=== PATIENT | female | born 1950 | race African-American/Black ===

== ENCOUNTER 2017-11-18 19:54 | Observation (INO) | payer MEDICARE, MEDICAID ==
[~2017-11-18] VITALS: Ht 167.6 cm; Wt 70.5 kg
[~2017-11-18 19:54] MED LIST: AMLO5TAB4 PO; ATOR20TA65 PO; CARB200T PO; CARV12.545 PO; CLON0.5T4 PO; CODE473S2 PO; DIGO125T82 PO; FURO20TA4 PO; GABA-529 PO; GLIP5TAB12 PO; GLYB5TAB7 PO; HYDR-4009 PO; IBUP-2028 PO; LISI-604 PO; METF500T4 PO; MONT10TA24 PO; NATE60TA PO; NORT25CA PO; POTA20TA82 PO; RANI150C12 PO; THEO80SO4 PO; TOPI25TA48 PO; TRAM50TA3 PO
[2017-11-18] MEDS ORDERED: LEVETIRACETAM 500MG PREMIX 100 ML IV ONE (21:15)
[2017-11-18 23:06] LABS: BASOPHILS % 1.3 % (0.0-2.0); EOSINOPHILS % 2.9 % (0.0-5.0); HEMATOCRIT. 33.9 % (36.0-48.0); HEMOGLOBIN. 11.5 g/dL (12.0-16.0); LYMPHOCYTES % 51.8 % (20.0-50.0); MEAN CORPUSCULAR HEMOGLOBIN 31.6 pg (28.0-32.0); MEAN CORPUSCULAR VOLUME 92.9 fL (81.0-99.0); MEAN PLATELET VOLUME 7.8 fl (7.4-10.4); MONOCYTES % 7.7 % (2.0-8.0); NEUTROPHILS % 36.3 % (40.0-76.0); PLATELET 290 x1000/uL (130-400); RED BLOOD CELL COUNT 3.65 mill/uL (4.2-5.4); RED CELL DISTRIBUTION WIDTH 13.3 % (11.6-14.6)
[2017-11-18 23:13] LABS: CHLORIDE 107 mEq/L (98-107)
[2017-11-18 23:17] LABS: PARTIAL THROMBOPLASTIN TIME 25.7 sec (23.4-31.0); PROTHROMBIN TIME 10.3 sec (9.4-11.6)
[2017-11-18 23:23] LABS: VALPROIC ACID < 3.0 ug/mL (50-100)
[2017-11-18 23:38] LABS: DIGOXIN 0.2 ng/mL (0.9-2.0)
[2017-11-18 23:52] LABS: CARBAMAZEPINE < 0.5 ug/mL (4-12); PHENOBARBITAL < 2.1 ug/mL (15.0-40.0)
[2017-11-19 00:43] LABS: CREATINE KINASE 211 IU/L (26-192)
[2017-11-19 00:44] LABS: CREATINE KINASE MB FRACTION 1.1 ng/mL (0.5-3.6)
[2017-11-19 00:53] LABS: THEOPHYLLINE < 2.0 ug/mL (10-20)
[2017-11-19 09:30] VITALS: BP 149/71
[2017-11-19 10:43] VITALS: BP 149/71
[2017-11-19] MEDS ORDERED: IPRATROPIUM/ALBUTEROL 0.5-3(2.5)MG/3ML NEB INH PRN (11:15)
[2017-11-19] MEDS ORDERED: ONDANSETRON HCL 4MG/2ML VIAL IV PRN (11:15)
[2017-11-19 12:00] VITALS: BP 114/72
[2017-11-19] MEDS ORDERED: DEXTROSE 50% WATER 50ML SYRINGE IV PRN (15:15)
[2017-11-19] MEDS: GABAPENTIN 100MG CAPSULE PO SCH ×2 (15:36→21:31)
[2017-11-19 16:00] VITALS: BP 155/83
[2017-11-19] MEDS ORDERED: LEVETIRACETAM 500MG PREMIX 100 ML IV SCH (16:00)
[2017-11-19] MEDS: NICOTINE 21MG PATCH TD SCH (16:30)
[2017-11-19 17:00] LABS: CHLORIDE 109 mEq/L (98-107)
[2017-11-19] MEDS: CARBAMAZEPINE 200MG TABLET PO SCH ×2 (17:00→21:31)
[2017-11-19] MEDS ORDERED: GLYBURIDE 5MG TABLET PO SCH (17:00)
[2017-11-19] MEDS: CARVEDILOL 12.5MG TABLET PO SCH (17:00)
[2017-11-19] MEDS: MONTELUKAST SODIUM 10MG TABLET PO SCH (17:02)
[2017-11-19] MEDS: METHYLPREDNISOLONE SOD SUCC 40 MG/ML VIAL IV SCH (17:02)
[2017-11-19] MEDS: BLOOD SUGAR DIAGNOSTIC STRIP TEST SCH ×2 (17:03→21:20)
[2017-11-19 17:11] LABS: CLARITY URINE CLEAR (CLEAR); COLOR URINE YELLOW (YELLOW); KETONES URINE NEGATIVE (NEGATIVE); LEUKOCYTE ESTERASE URINE 1+ (NEGATIVE); NITRITE URINE NEGATIVE (NEGATIVE); OCCULT BLOOD URINE NEGATIVE (NEGATIVE); PROTEIN URINE NEGATIVE (NEGATIVE); SPECIFIC GRAVITY URINE 1.011 (1.005-1.030)
[2017-11-19 17:11] LABS: CREATINE KINASE 160 IU/L (26-192)
[2017-11-19 17:13] LABS: CREATINE KINASE MB FRACTION 1.5 ng/mL (0.5-3.6)
[2017-11-19 17:52] LABS: *AMPHETAMINES SCREEN URINE NEGATIVE (NEGATIVE); *BARBITURATES SCREEN URINE NEGATIVE (NEGATIVE); *BENZODIAZEPINES SCREEN URINE NEGATIVE (NEGATIVE); *COCAINE SCREEN URINE NEGATIVE (NEGATIVE)
[2017-11-19 17:53] LABS: CANNABINOID URINE SCREEN PRESUMTIVE POSITIVE (NEGATIVE); METHADONE URINE SCREEN NEGATIVE (NEGATIVE); OPIATES URINE SCREEN NEGATIVE (NEGATIVE); PHENCYCLIDINE URINE SCREEN NEGATIVE (NEGATIVE)
[2017-11-19] MEDS: METFORMIN HCL 500MG TABLET PO SCH (18:10)
[2017-11-19] MEDS ORDERED: LORAZEPAM 2MG/ML CPJ IV PRN (19:45)
[2017-11-19 20:00] VITALS: BP 131/57
[2017-11-19] MEDS ORDERED: ATORVASTATIN CALCIUM 20MG TABLET PO SCH (21:00)
[2017-11-19] MEDS ORDERED: CLONAZEPAM 0.5MG TABLET PO SCH (21:00)
[2017-11-19] MEDS: INSULIN LISPRO 100 UNITS/ML SUBCUT SCH (21:30)
[2017-11-19] MEDS: LAMOTRIGINE 25MG TABLET PO SCH (21:31)
[2017-11-19] MEDS: AMLODIPINE 5MG TABLET PO SCH (21:31)
[2017-11-20] VITALS: BP 143/56
[2017-11-20 00:36] LABS: CREATINE KINASE 188 IU/L (26-192)
[2017-11-20 00:38] LABS: CREATINE KINASE MB FRACTION 1.1 ng/mL (0.5-3.6)
[2017-11-20 04:00] VITALS: BP 127/59
[2017-11-20] MEDS: BLOOD SUGAR DIAGNOSTIC STRIP TEST SCH ×3 (07:40→17:40)
[2017-11-20 08:00] VITALS: BP 139/58
[2017-11-20] MEDS: INSULIN LISPRO 100 UNITS/ML SUBCUT SCH ×3 (08:10→18:10)
[2017-11-20] MEDS ORDERED: FUROSEMIDE 20MG TABLET PO SCH (09:00)
[2017-11-20] MEDS ORDERED: TOPIRAMATE 25MG TABLET PO SCH (09:00)
[2017-11-20] MEDS ORDERED: DIGOXIN 125MCG TABLET PO SCH (09:00)
[2017-11-20] MEDS ORDERED: NORTRIPTYLINE HCL 25MG CAPSULE PO SCH (09:00)
[2017-11-20] MEDS ORDERED: GLIPIZIDE 5MG TABLET PO SCH (09:00)
[2017-11-20] MEDS: GABAPENTIN 100MG CAPSULE PO SCH ×2 (09:00→15:00)
[2017-11-20] MEDS: NICOTINE 21MG PATCH TD SCH (09:00)
[2017-11-20] MEDS ORDERED: TRAMADOL 50MG TABLET PO SCH (09:00)
[2017-11-20] MEDS ORDERED: NATEGLINIDE 60MG TABLET PO SCH (09:00)
[2017-11-20] MEDS: LAMOTRIGINE 25MG TABLET PO SCH ×2 (09:00→16:36)
[2017-11-20] MEDS ORDERED: LISINOPRIL 20MG TABLET PO SCH (09:00)
[2017-11-20] MEDS: AMLODIPINE 5MG TABLET PO SCH (10:02)
[2017-11-20] MEDS: CARVEDILOL 12.5MG TABLET PO SCH ×2 (10:05→16:37)
[2017-11-20] MEDS: CARBAMAZEPINE 200MG TABLET PO SCH ×2 (10:05→16:36)
[2017-11-20] MEDS: METHYLPREDNISOLONE SOD SUCC 40 MG/ML VIAL IV SCH ×2 (10:05→16:36)
[2017-11-20] MEDS: TOPIRAMATE 25MG TABLET PO SCH ×2 (10:06→16:37)
[2017-11-20 12:00] VITALS: BP 158/63
[2017-11-20] MEDS: METFORMIN HCL 500MG TABLET PO SCH ×3 (13:10→18:10)
[2017-11-20 16:00] VITALS: BP 122/74
[2017-11-20] MEDS: MONTELUKAST SODIUM 10MG TABLET PO SCH (16:37)
[2017-11-20 18:32] VITALS: BP 122/74
== END 2017-11-20 19:15 | disposition home or self-care (01) ==
LOC: ER 20:02 → INTOOBSV 23:02 → 7WST 23:02 → EDBEDREQ 23:06 → EDBEDREQTM 23:06 → ENRESERV 11-19 07:40
PROVIDERS: ADMIT Internal Medicine; ATTEND Internal Medicine
DX: G40.909 Epilepsy, unspecified, not intractable, without status epilepticus (principal); I50.9 Heart failure, unspecified; I11.0 Hypertensive heart disease with heart failure; E11.9 Type 2 diabetes mellitus without complications; F17.210 Nicotine dependence, cigarettes, uncomplicated; J44.9 Chronic obstructive pulmonary disease, unspecified; Z90.710 Acquired absence of both cervix and uterus; H05.20 Unspecified exophthalmos; D64.9 Anemia, unspecified; E87.5 Hyperkalemia; I65.29 Occlusion and stenosis of unspecified carotid artery; R62.7 Adult failure to thrive; Z79.84 Long term (current) use of oral hypoglycemic drugs; Z79.899 Other long term (current) drug therapy
CPT/HCPCS: 36415; 70450; 70551; 71045; 80048; 80156; 80162; 80165; 80184; 80185; 80198; 80305; 81003; 82550; 82553; 82962; 83880; 84484; 85025; 85610; 85730; 93005; 93306; 94640; 96365; 96372; 96375; 96376; 97166; 99285; G0378; G8987; G8988; G8989; J1815; J1953; J2920; J7050; J7620

== ENCOUNTER 2019-09-26 05:35 | Emergency (ER) | payer MEDICARE, MEDICAID ==
[~2019-09-26] VITALS: Ht 170.2 cm; Wt 73.0 kg
[~2019-09-26 05:35] MED LIST changes: -ATOR20TA65 PO; -CARV12.545 PO; -CODE473S2 PO; -DIGO125T82 PO; -GLIP5TAB12 PO; -HYDR-4009 PO; -IBUP-2028 PO; +METF-414 PO; -METF500T4 PO; -MONT10TA24 PO; +MONT10TA26 PO; -NATE60TA PO; -NORT25CA PO; -POTA20TA82 PO; -RANI150C12 PO; -THEO80SO4 PO; -TOPI25TA48 PO; -TRAM50TA3 PO
[2019-09-26] MEDS ORDERED: KETOROLAC 30MG/ML VIAL IV STA (06:29)
[2019-09-26] MEDS ORDERED: SODIUM CHLORIDE 0.9% 1,000 ML IV ONE (06:29)
[2019-09-26] MEDS ORDERED: METOCLOPRAMIDE HCL 10MG/2ML VIAL IV ONE (06:30)
[2019-09-26 06:39] LABS: BASOPHILS % 0.9 % (0.0-2.0); HEMATOCRIT. 36.4 % (36.0-48.0); HEMOGLOBIN. 12.1 g/dL (12.0-16.0); LYMPHOCYTES % 48.3 % (20.0-50.0); MEAN CORPUSCULAR HEMOGLOBIN 31.2 pg (28.0-32.0); MEAN CORPUSCULAR VOLUME 93.6 fL (81.0-99.0); MEAN PLATELET VOLUME 7.3 fl (7.4-10.4); MONOCYTES % 7.2 % (2.0-8.0); NEUTROPHILS % 39.6 % (40.0-76.0); PLATELET 278 x1000/uL (130-400); RED BLOOD CELL COUNT 3.89 mill/uL (4.2-5.4); RED CELL DISTRIBUTION WIDTH 13.1 % (11.6-14.6)
[2019-09-26 06:53] LABS: CHLORIDE 108 mEq/L (98-107)
[2019-09-26 06:56] LABS: ETHANOL BLOOD < 10 mg/dL
[2019-09-26 07:10] LABS: INR 0.9; PROTHROMBIN TIME 10.2 sec (9.6-11.0)
[2019-09-26 10:09] VITALS: BP 136/68
== END 2019-09-26 10:10 | disposition home or self-care (01) ==
LOC: ER 06:26
DX: R51 Headache (principal); R11.2 Nausea with vomiting, unspecified; R19.7 Diarrhea, unspecified; I11.0 Hypertensive heart disease with heart failure; I50.9 Heart failure, unspecified; E11.9 Type 2 diabetes mellitus without complications; Z79.899 Other long term (current) drug therapy
CPT/HCPCS: 36415; 70450; 80053; 80320; 85025; 85610; 96361; 96374; 96375; 99284; J1885; J2765; J7030; G0480

== ENCOUNTER 2022-08-22 16:12 | Emergency (ER) | payer MEDICARE, MEDICAID ==
[~2022-08-22] VITALS: Ht 175.3 cm; Wt 75.0 kg
[~2022-08-22 16:12] MED LIST changes: -LISI-604 PO; +LISI20TA31 PO; +MONT-39 PO; -MONT10TA26 PO
[2022-08-22 16:18] VITALS: BP 168/90
[2022-08-22] MEDS ORDERED: SODIUM CHLORIDE 0.9% 1,000 ML IV ONE (21:00)
[2022-08-22 21:37] LABS: BASOPHILS % 0.8 % (0.0-2.0); EOSINOPHILS % 4.3 % (0.0-5.0); HEMATOCRIT. 38.9 % (36.0-48.0); HEMOGLOBIN. 12.8 g/dL (12.0-16.0); LYMPHOCYTES % 39.2 % (20.0-50.0); MEAN CORPUSCULAR HEMOGLOBIN 30.9 pg (28.0-32.0); MEAN CORPUSCULAR VOLUME 94.2 fL (81.0-99.0); MEAN PLATELET VOLUME 7.2 fl (7.4-10.4); MONOCYTES % 7.5 % (2.0-8.0); NEUTROPHILS % 48.2 % (40.0-76.0); PLATELET 239 x1000/uL (130-400); RED BLOOD CELL COUNT 4.13 mill/uL (4.2-5.4); RED CELL DISTRIBUTION WIDTH 13.6 % (11.6-14.6)
[2022-08-22 21:42] LABS: CHLORIDE 107 mEq/L (98-107)
[2022-08-22] MEDS ORDERED: TOPIRAMATE 25MG TABLET PO STA (22:50)
[2022-08-22] MEDS ORDERED: CARBAMAZEPINE 100MG TABLET CHEW PO ONE (23:00)
[2022-08-22] MEDS ORDERED: CARBAMAZEPINE 100MG TABLET CHEW PO NR (23:15)
[2022-08-22] MEDS ORDERED: TOPIRAMATE 25MG TABLET PO NR (23:15)
== END 2022-08-22 23:15 | disposition home or self-care (01) ==
LOC: ER 16:12
DX: R56.9 Unspecified convulsions (principal); I11.0 Hypertensive heart disease with heart failure; I50.9 Heart failure, unspecified; E11.9 Type 2 diabetes mellitus without complications
CPT/HCPCS: 36415; 71045; 80053; 83880; 84484; 85025; 93005; 99285; J7030